=== PATIENT | male | born 1980 | race Two or more races ===

== ENCOUNTER 2019-12-17 17:45 | Inpatient (IN) | payer MEDICAID, OTHER ==
[~2019-12-17] VITALS: Ht 167.6 cm; Wt 84.0 kg
[2019-12-17] MEDS ORDERED: SODIUM CHLORIDE 0.9% 1,000 ML IV ONE (17:58)
[2019-12-17] MEDS ORDERED: ASPirin 81 mg TAB PO ONE (18:00)
[2019-12-17] MEDS ORDERED: ONDANSETRON HCL 4 MG/2 ML VIAL IV ONE (18:15)
[2019-12-17] MEDS ORDERED: MORPHINE SULFATE 4 MG/ML SYR/VIAL IV ONE (18:15)
[2019-12-17] MEDS ORDERED: ACETAMINOPHEN 325 MG TAB PO PRN (18:45)
[2019-12-17] MEDS ORDERED: NITROGLYCERIN 0.4 MG SL TAB SL PRN ×2 (18:45)
[2019-12-17] MEDS ORDERED: LORazepam 0.5 MG TAB PO PRN (18:45)
[2019-12-17] MEDS ORDERED: ONDANSETRON HCL 4 MG/2 ML VIAL IV PRN (18:45)
[2019-12-17] MEDS ORDERED: MORPHINE SULFATE 4 MG/ML SYR/VIAL IV PRN (18:45)
[2019-12-17] MEDS ORDERED: ALUM & MAG HYDROX-SIMETH LIQ(MAALOX) 30 ML PO ONE (18:45)
[2019-12-17] MEDS ORDERED: MORPHINE SULF INJ 2 MG/ML SYRINGE 1ML IV PRN (18:45)
[2019-12-17 19:06] LABS: Basophils # (auto) 0 10 ^3/uL (0-0.2); Basophils % (auto) 0.4 % (0.0-2.0); Eosinophils # (auto) 0.1 10 ^3/uL (0-0.8); Eosinophils % (auto) 2.3 % (0.0-7.0); Hematocrit 40.8 % (41.0-53.0); Lymphocytes # (auto) 1.4 10 ^3/uL (0.4-5.4); Lymphocytes % (auto) 24.9 % (10.0-50.0); Mean Corpuscular Hemoglobin 27.6 pg (28.0-32.0); Mean Corpuscular Hgb Conc. 34.4 g/dL (32.0-36.0); Mean Corpuscular Volume 80.3 fL (80.0-100.0); Monocytes # (auto) 0.6 10 ^3/uL (0-1.3); Neutrophils # (auto) 3.4 10 ^3/uL (1.6-8.6); Neutrophils % (auto) 61.4 % (37.0-80.0); Nucleated Red Blood Cells % 0.1 %; Platelet Count (auto) 180 10^3/uL (140-450); Red Blood Cells 5.07 10^6/uL (4.5-5.90); Red Cell Distribution Width 13.6 % (11.8-14.3); White Blood Cell 5.5 10^3/uL (4.4-10.8)
[2019-12-17 19:07] LABS: Partial Thromboplastin Time 26.3 sec (23.64-32.05)
[2019-12-17 19:14] LABS: Albumin 3.7 g/dL (3.4-5.0); Anion Gap 5 (5-15); Blood Urea Nitrogen 16 mg/dL (7-18); Calcium 8.5 mg/dL (8.5-10.1); Carbon Dioxide 25 mmol/L (21-32); Chloride 111 mmol/L (98-107); Glucose 90 mg/dL (74-106); Potassium 3.5 mmol/L (3.5-5.1); Sodium 141 mmol/L (136-145)
[2019-12-17 19:19] LABS: Alanine Aminotransferase 66 U/L (16-61); Alkaline Phosphatase 100 U/L (45-117); Aspartate Aminotransferase 22 U/L (15-37); BUN/Creatinine Ratio 17.8; Bilirubin, Total 0.3 mg/dL (0.2-1.0); GFR African American 120 mL/min; GFR Non-African American 99 mL/min
[2019-12-17] MEDS ORDERED: METOPROLOL TARTRATE 1MG/1ML-5ML VIAL IV PRN (21:30)
[2019-12-17] MEDS ORDERED: FUROSEMIDE 20 MG/2 ML VIAL IV ONE (21:30)
[2019-12-17] MEDS ORDERED: ATEN50TA PO (21:31)
[2019-12-17] MEDS ORDERED: ATORVASTATIN 20 MG TAB PO SCH (22:00)
--- NOTE | 2019-12-17 22:00 | NUR ---
Telemetry admit from ER MARIAM QUACH admitted to Telemetry unit after SBAR received. Patient oriented to Lori Lopes RN primary RN, unit, room, bed, and unit policies regarding patient care and visiting hours. Patient now on continuous telemetry monitoring, tele box # [id number] and telemetry reading on arrival to unit is SR. Patient weighed by bedscale and encouraged to call if they need something. All questions and concerns addressed, patient verbalized understanding, will continue to monitor Note: []
[2019-12-17] MEDS: CARVEDILOL 3.125 MG TAB PO SCH (22:12)
[2019-12-18 00:06] VITALS: BP 122/78
[2019-12-18] MEDS: SODIUM CHLORIDE 0.9% 1,000 ML IV SCH ×2 (01:15→08:00)
[2019-12-18 05:40] VITALS: BP 114/70
[2019-12-18] MEDS ORDERED: FUROSEMIDE 20 MG/2 ML VIAL IV SCH (06:00)
[2019-12-18 06:06] LABS: Basophils # (auto) 0 10 ^3/uL (0-0.2); Basophils % (auto) 0.5 % (0.0-2.0); Eosinophils # (auto) 0.1 10 ^3/uL (0-0.8); Eosinophils % (auto) 1.8 % (0.0-7.0); Hematocrit 41.4 % (41.0-53.0); Hemoglobin 14.4 g/dL (13.5-17.5); Lymphocytes # (auto) 2.1 10 ^3/uL (0.4-5.4); Lymphocytes % (auto) 28.3 % (10.0-50.0); Mean Corpuscular Hgb Conc. 34.8 g/dL (32.0-36.0); Mean Corpuscular Volume 80.6 fL (80.0-100.0); Monocytes # (auto) 0.7 10 ^3/uL (0-1.3); Monocytes % (auto) 9.2 % (0.0-12.0); Neutrophils # (auto) 4.4 10 ^3/uL (1.6-8.6); Neutrophils % (auto) 60.2 % (37.0-80.0); Nucleated Red Blood Cells % 0.2 %; Platelet Count (auto) 180 10^3/uL (140-450); Red Blood Cells 5.14 10^6/uL (4.5-5.90); Red Cell Distribution Width 13.7 % (11.8-14.3); White Blood Cell 7.3 10^3/uL (4.4-10.8)
[2019-12-18 06:23] LABS: Albumin 3.7 g/dL (3.4-5.0); Calcium 8.5 mg/dL (8.5-10.1); Potassium 3.3 mmol/L (3.5-5.1)
[2019-12-18 06:25] LABS: INR 1.01 (0.9-1.15)
[2019-12-18 06:30] LABS: BUN/Creatinine Ratio 17.1; Bilirubin, Total 0.5 mg/dL (0.2-1.0); Magnesium 2.3 mg/dL (1.6-2.6); Phosphorus 3.9 mg/dL (2.5-4.90); Total Protein 7.1 g/dL (6.4-8.2)
--- NOTE | 2019-12-18 07:32 | NUR ---
RECEIVED PATIENT FROM [facility] SHIFT RN, ALERT AND ORIENTED X4. DENIES PAIN OR SOB, NO S/S DISTRESS NOTED. PLAN OF CARE DISCUSSED WITH METER CHANGES RECORDS CLERK. PATIENT VERBALIZED UNDERSTANDING. BED IN LOW AND LOCKED POSITION, CALL LIGHT AND PHONE WITHIN REACH. PATIENT ADVISED TO CALL FOR ASSISTANCE PRN. WILL CONTINUE TO MONITOR Q1HR AND PRN.
[2019-12-18 08:00] VITALS: BP 121/74
[2019-12-18] MEDS ORDERED: POTASSIUM CHL 20 Meq TABLET PO ONE (08:00)
[2019-12-18 09:40] VITALS: BP 121/74
[2019-12-18] MEDS ORDERED: ENOXAPARIN SOD 40 MG/0.4 ML SYRINGE SC SCH (10:00)
[2019-12-18] MEDS ORDERED: ENOXAPARIN SOD 60 MG/0.6 ML SYRINGE SC SCH (10:00)
[2019-12-18] MEDS ORDERED: LISINOPRIL 10 MG TAB PO SCH (10:00)
[2019-12-18] MEDS ORDERED: CLOPIDOGREL BISULFATE 75 MG TAB PO SCH (10:00)
[2019-12-18] MEDS ORDERED: ASPirin 81 mg TAB PO SCH (10:00)
[2019-12-18] MEDS ORDERED: DOCUSATE SOD 100 MG CAP PO SCH (10:00)
[2019-12-18] MEDS: CARVEDILOL 3.125 MG TAB PO SCH (10:08)
--- NOTE | 2019-12-18 10:10 | NUR ---
PATIENT REFUSED LOVENOX AND COLACE
[2019-12-18 11:15] LABS: Alcohol, Urine < 3.0 mg/dL (0-10); Amphetamine Screen, Urine NEGATIVE (NEGATIVE); Barbiturate Scree,Urine NEGATIVE (NEGATIVE); Benzodiazephine Screen, Urine NEGATIVE (NEGATIVE); Cannabinoid Screen, Urine NEGATIVE (NEGATIVE); Cocaine Screen, Urine NEGATIVE (NEGATIVE); Opiate Scree,Urine NEGATIVE (NEGATIVE); Phencyclidine Screen, Urine NEGATIVE (NEGATIVE)
[2019-12-18] MEDS ORDERED: METO25TA93 PO (11:52)
--- NOTE | 2019-12-18 11:53 | NUR ---
DR RASHID AT BEDSIDE, DISCUSSED PLAN OF CARE AND INITIATED DISCHARGE. PATIENT VERBALIZED HE HAS DOCTOR'S APPOINTMENT TO FOLLOW UP WITH IN DECEMBER.
[2019-12-18 13:03] VITALS: BP 104/56
[2019-12-18 13:42] VITALS: BP 104/54
--- NOTE | 2019-12-18 15:22 | NUR ---
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 PT IS A 39 YR OLD [place] SPEAKING FEMALE ADMITTED FOR CHEST PAIN, PT HAS BEEN ON ATENOLOL FOR 15 YRS. 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 PT RESIDES WITH HIS NIECE SAGE [phone], HE DOES NOT HAVE AN AHCD, DECLINED AHCD INFO AT THIS TIME. PT GOES TO [facility] IN [place] FOR HIS PRIMARY CARE. PT'S MEDICAL WAS SECURED PER [place] FROM [facility].PT TO [place] HOME WITH FAMILY, HE HAS A F/U APPOINTMENT IN [place] WITH A ABSTRACTOR ON 12/26. NO OTHER SS NEEDS. SS TO REMAIN AVAILABLE NEEDED. Addendum: 12/18/19 at 1532 by EMILY RAMIREZ SS Amended: Links added.
--- NOTE | 2019-12-18 15:50 | NUR ---
PATIENT DISCHARGED AT THIS TIME. AMBULATORY, ALERT AND ORIENTED X4. DISCHARGE SUMMARY AND FOLLOW UP INSTRUCTIONS PROVIDED WITH LIBRARY ACQUISITIONS TECHNICIAN. PATIENT VERBALIZED UNDERSTANDING. PERIPHERAL IV ACCESS DISCONTINUED. TELE MONITOR RETURNED TO ICU.
== END 2019-12-18 15:50 | disposition home or self-care (01) | DRG 201 ==
LOC: EDBD 17:45 → ER 17:45 → TELE 17:46 → TELE-WESTW 20:02
PROVIDERS: ADMIT Hospitalist; ATTEND Internal Medicine Nephrology
DX: I47.1 Supraventricular tachycardia (principal); J81.0 Acute pulmonary edema; F41.9 Anxiety disorder, unspecified; E66.9 Obesity, unspecified; K76.0 Fatty (change of) liver, not elsewhere classified; I51.7 Cardiomegaly; Z68.36 Body mass index [BMI] 36.0-36.9, adult
CPT/HCPCS: 36415; 71045; 80053; 80307; 83735; 84100; 84443; 84484; 85025; 85610; 85730; 93005; 93306; 99291; G0378; J2405

== ENCOUNTER 2020-04-02 21:46 | Emergency (ER) | payer MEDICAID ==
[~2020-04-02] VITALS: Ht 177.8 cm; Wt 72.6 kg
[2020-04-02 22:37] LABS: Basophils # (auto) 0 10 ^3/uL (0-0.2); Basophils % (auto) 0.3 % (0.0-2.0); Eosinophils # (auto) 0.1 10 ^3/uL (0-0.8); Eosinophils % (auto) 1.8 % (0.0-7.0); Hematocrit 42.3 % (41.0-53.0); Hemoglobin 14.7 g/dL (13.5-17.5); Lymphocytes # (auto) 1.6 10 ^3/uL (0.4-5.4); Lymphocytes % (auto) 30.8 % (10.0-50.0); Mean Corpuscular Hemoglobin 27.7 pg (28.0-32.0); Mean Corpuscular Hgb Conc. 34.7 g/dL (32.0-36.0); Monocytes # (auto) 0.4 10 ^3/uL (0-1.3); Monocytes % (auto) 7.5 % (0.0-12.0); Neutrophils # (auto) 3.1 10 ^3/uL (1.6-8.6); Neutrophils % (auto) 59.6 % (37.0-80.0); Nucleated Red Blood Cells % 0.1 %; Platelet Count (auto) 205 10^3/uL (140-450); Red Blood Cells 5.29 10^6/uL (4.5-5.90); Red Cell Distribution Width 13.4 % (11.8-14.3); White Blood Cell 5.1 10^3/uL (4.4-10.8)
[2020-04-02 22:40] LABS: INR 0.97 (0.9-1.15); Partial Thromboplastin Time 26.2 sec (23.0-31.2)
[2020-04-02 22:41] LABS: Albumin 3.7 g/dL (3.4-5.0); Anion Gap 7 (5-15); BUN/Creatinine Ratio 15.3; Blood Urea Nitrogen 15 mg/dL (7-18); Calcium 8.8 mg/dL (8.5-10.1); Carbon Dioxide 25 mmol/L (21-32); Chloride 108 mmol/L (98-107); GFR African American 109 mL/min; GFR Non-African American 90 mL/min; Glucose 138 mg/dL (74-106); Magnesium 2.4 mg/dL (1.6-2.6); Potassium 3.3 mmol/L (3.5-5.1); Sodium 140 mmol/L (136-145)
[2020-04-02 22:46] LABS: Alanine Aminotransferase 60 U/L (16-61); Alkaline Phosphatase 117 U/L (45-117); Aspartate Aminotransferase 18 U/L (15-37); Bilirubin, Total 0.3 mg/dL (0.2-1.0); Total Protein 7.5 g/dL (6.4-8.2)
[2020-04-02 23:04] LABS: Urine Bacteria NONE SEEN /hpf (None Seen); Urine Blood Negative /uL (Negative); Urine Mucus FEW (None Seen); Urine Specific Gravity 1.008 (1.001-1.035); Urine WBC None Seen /hpf (0 - 3)
[2020-04-02 23:20] LABS: Alcohol, Urine < 3.0 mg/dL (0-10); Amphetamine Screen, Urine NEGATIVE (NEGATIVE); Barbiturate Scree,Urine NEGATIVE (NEGATIVE); Benzodiazephine Screen, Urine NEGATIVE (NEGATIVE); Cannabinoid Screen, Urine NEGATIVE (NEGATIVE); Cocaine Screen, Urine NEGATIVE (NEGATIVE); Opiate Scree,Urine NEGATIVE (NEGATIVE); Phencyclidine Screen, Urine NEGATIVE (NEGATIVE)
[2020-04-03 04:00] VITALS: BP 106/69
== END 2020-04-03 05:10 | disposition home or self-care (01) ==
LOC: EDBD 21:46 → EDUNIT# 21:50 → ER 21:50
DX: I47.1 Supraventricular tachycardia (principal); F41.9 Anxiety disorder, unspecified
CPT/HCPCS: 36415; 71045; 80053; 80307; 81001; 83735; 83880; 84443; 84484; 85025; 85610; 85730; 93005

== ENCOUNTER 2020-04-18 10:37 | Emergency (ER) | payer MEDICAID ==
[~2020-04-18] VITALS: Ht 157.5 cm; Wt 80.3 kg
[2020-04-18 11:05] VITALS: BP 124/88
[2020-04-18 11:28] LABS: Basophils # (auto) 0 10 ^3/uL (0-0.2); Basophils % (auto) 0.4 % (0.0-2.0); Eosinophils # (auto) 0.1 10 ^3/uL (0-0.8); Eosinophils % (auto) 1.6 % (0.0-7.0); Hematocrit 42.7 % (41.0-53.0); Lymphocytes # (auto) 1.3 10 ^3/uL (0.4-5.4); Lymphocytes % (auto) 26.1 % (10.0-50.0); Mean Corpuscular Hemoglobin 27.9 pg (28.0-32.0); Mean Corpuscular Hgb Conc. 35.1 g/dL (32.0-36.0); Mean Corpuscular Volume 79.3 fL (80.0-100.0); Monocytes # (auto) 0.5 10 ^3/uL (0-1.3); Monocytes % (auto) 9.8 % (0.0-12.0); Neutrophils # (auto) 3.2 10 ^3/uL (1.6-8.6); Neutrophils % (auto) 62.1 % (37.0-80.0); Nucleated Red Blood Cells % 0.2 %; Platelet Count (auto) 174 10^3/uL (140-450); Red Blood Cells 5.38 10^6/uL (4.5-5.90); Red Cell Distribution Width 13.8 % (11.8-14.3); White Blood Cell 5.1 10^3/uL (4.4-10.8)
[2020-04-18 11:34] LABS: Albumin 4.3 g/dL (3.4-5.0); Amylase 64 U/L (25-115); Anion Gap 8 (5-15); Blood Urea Nitrogen 21 mg/dL (7-18); Calcium 8.6 mg/dL (8.5-10.1); Carbon Dioxide 26 mmol/L (21-32); Chloride 104 mmol/L (98-107); Glucose 93 mg/dL (74-106); Lipase 149 U/L (73-393); Potassium 3.7 mmol/L (3.5-5.1); Sodium 138 mmol/L (136-145)
[2020-04-18 11:41] LABS: Alanine Aminotransferase 50 U/L (16-61); Alkaline Phosphatase 96 U/L (45-117); Aspartate Aminotransferase 17 U/L (15-37); BUN/Creatinine Ratio 20.6; Bilirubin, Total 0.6 mg/dL (0.2-1.0); GFR African American 104 mL/min; GFR Non-African American 86 mL/min
== END 2020-04-18 12:43 | disposition home or self-care (01) ==
LOC: ER 10:37
DX: R10.13 Epigastric pain (principal); R07.89 Other chest pain; R00.2 Palpitations; I10 Essential (primary) hypertension; I47.1 Supraventricular tachycardia
CPT/HCPCS: 36415; 71045; 76705; 80053; 82150; 83690; 84484; 85025; 93005

== ENCOUNTER 2020-12-02 03:56 | Emergency (ER) | payer MEDICAID ==
[2020-12-02 04:08] VITALS: BP 128/88
== END 2020-12-02 04:08 | disposition left against medical advice (07) ==
LOC: ER 03:56 → EDBD 03:56 → ER 04:08
DX: R07.9 Chest pain, unspecified (principal); Z53.21 Procedure and treatment not carried out due to patient leaving prior to being seen by health care provider
CPT/HCPCS: 93005

== ENCOUNTER 2022-01-07 23:13 | Emergency (ER) | payer MEDICAID ==
[~2022-01-07] VITALS: Ht 170.2 cm; Wt 82.0 kg
[2022-01-08 01:43] LABS: Urine Amorphous Crystal FEW /hpf (None Seen); Urine Bacteria NONE SEEN /hpf (None Seen); Urine Blood Negative /uL (Negative); Urine Mucus FEW (None Seen); Urine Specific Gravity 1.029 (1.001-1.035); Urine WBC 3 /hpf (0 - 3)
[2022-01-08] MEDS ORDERED: ACETAMINOPHEN 325 MG TAB PO ONE (01:45)
[2022-01-08] MEDS ORDERED: HYDROcodone-ACET 5/325MG TAB PO ONE (01:45)
[2022-01-08 02:16] LABS: Basophils # (auto) 0 10 ^3/uL (0-0.2); Basophils % (auto) 0.4 % (0.0-2.0); Eosinophils # (auto) 0.1 10 ^3/uL (0-0.8); Eosinophils % (auto) 1.6 % (0.0-7.0); Hematocrit 42.2 % (41.0-53.0); Hemoglobin 14.7 g/dL (13.5-17.5); Lymphocytes # (auto) 1.7 10 ^3/uL (0.4-5.4); Lymphocytes % (auto) 26.7 % (10.0-50.0); Mean Corpuscular Hemoglobin 27.6 pg (28.0-32.0); Mean Corpuscular Hgb Conc. 34.9 g/dL (32.0-36.0); Mean Corpuscular Volume 79.1 fL (80.0-100.0); Monocytes # (auto) 0.7 10 ^3/uL (0-1.3); Monocytes % (auto) 11.4 % (0.0-12.0); Neutrophils # (auto) 3.7 10 ^3/uL (1.6-8.6); Neutrophils % (auto) 59.9 % (37.0-80.0); Nucleated Red Blood Cells % 0.3 %; Red Blood Cells 5.33 10^6/uL (4.5-5.90); Red Cell Distribution Width 14.1 % (11.8-14.3); White Blood Cell 6.2 10^3/uL (4.4-10.8)
[2022-01-08 02:33] LABS: Alanine Aminotransferase 78 U/L (16-61); Albumin 4.2 g/dL (3.4-5.0); Anion Gap 8 (5-15); Aspartate Aminotransferase 25 U/L (15-37); BUN/Creatinine Ratio 17.3; Blood Urea Nitrogen 19 mg/dL (7-18); Calcium 8.4 mg/dL (8.5-10.1); Carbon Dioxide 24 mmol/L (21-32); Chloride 109 mmol/L (98-107); GFR African American 94 mL/min; GFR Non-African American 78 mL/min; Glucose 87 mg/dL (74-106); Potassium 4.3 mmol/L (3.5-5.1); Sodium 141 mmol/L (136-145)
[2022-01-08 02:36] LABS: Alkaline Phosphatase 140 U/L (45-117); Bilirubin, Total 0.4 mg/dL (0.2-1.0); Total Protein 8.1 g/dL (6.4-8.2)
[2022-01-08] MEDS ORDERED: TAM04C PO (03:00)
[2022-01-08] MEDS ORDERED: HYDR-4902 PO (03:00)
[2022-01-08] MEDS ORDERED: ACET650T12 PO (03:03)
[2022-01-08 03:50] VITALS: BP 126/88
== END 2022-01-08 04:03 | disposition home or self-care (01) ==
LOC: ER 23:13
DX: N39.0 Urinary tract infection, site not specified (principal); M54.50 Low back pain, unspecified; I10 Essential (primary) hypertension
CPT/HCPCS: 36415; 74176; 80053; 81001; 85025